=== PATIENT | male | born 1965 | race Caucasian/White ===

== ENCOUNTER 2018-04-05 19:08 | Observation (INO) | payer OTHER ==
[2018-04-05] MEDS ORDERED: ONDANSETRON 4 MG/2 ML VIAL IVP PRN (23:39)
[2018-04-05] MEDS ORDERED: NALOXONE HCL 0.4 MG/ML INJ IVP PRN (23:39)
[2018-04-05] MEDS ORDERED: ACETAMINOPHEN 325 MG TAB PO PRN (23:39)
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
[2018-04-06] MEDS: KETOROLAC 15 MG/1 ML SDV IVP SCH ×3 (00:57→12:11)
[2018-04-06] MEDS: BACITRACIN ZINC 14.2 GM OINTTUBE TP SCH ×3 (00:58→12:14)
[2018-04-06 07:28] VITALS: BP 125/76
[2018-04-06] MEDS ORDERED: oxyCODONE IR 5 MG TAB PO PRN (10:12)
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
== END 2018-04-06 12:39 | disposition home or self-care (01) ==
LOC: F3N 21:54
PROVIDERS: ADMIT Surgery; ATTEND Surgery
DX: S42.022A Displaced fracture of shaft of left clavicle, initial encounter for closed fracture (principal); S22.42XA Multiple fractures of ribs, left side, initial encounter for closed fracture; S27.0XXA Traumatic pneumothorax, initial encounter; V11.2XXA Unspecified pedal cyclist injured in collision with other pedal cycle in nontraffic accident, initial encounter; Y93.55 Activity, bike riding
CPT/HCPCS: 71045; 97161; 97165; G0378; J1885

== ENCOUNTER 2018-04-11 07:29 | Day surgery (SDC) | payer OTHER ==
[2018-04-11] MEDS ORDERED: ceFAZolin 2 GM/SWFI 2 GM/20 ML SYR IVP ONE (07:32)
[2018-04-11] MEDS ORDERED: LR 1,000 ML IV ONE (07:33)
[2018-04-11] MEDS ORDERED: BUPIVACAINE/EPI 0.5% 30 ML SDV ONE (07:50)
[2018-04-11] MEDS ORDERED: ceFAZolin 2 GM/DEXTROSE 100 ML IV ONE (08:00)
--- NOTE | 2018-04-11 08:27 | PDHPUP ---
History & Physical Update H&P update statement: This history and physical update is based on an assessment of the patient which was completed after admission or registration (within 24 hours), but prior to the surgery/procedure. H&P update: H&P reviewed & patient examined, no change in patient's condition since H&P completed
--- NOTE | 2018-04-11 08:39 | PDANEPAE ---
ANE Past Medical History - Cardiovascular History Hx Hypertension: No Hx Arrhythmias: No Hx Chest Pain: No Hx Coronary Artery / Peripheral Vascular Disease: No Hx CHF / Valvular Disease: No Hx Palpitations: No - Pulmonary History Hx COPD: No Hx Asthma/Reactive Airway Disease: No Hx Recent Upper Respiratory Infection: No Hx Oxygen in Use at Home: No Hx Sleep Apnea: No Sleep Apnea Screening Result - Last Documented: Positive Pulmonary History Comment: LT RIB FRACTURES 3-7. SMALL LEFT APICAL PNEUMOTHORAX - Neurologic History Hx Cerebrovascular Accident: No Hx Seizures: No Hx Dementia: No - Endocrine History Hx Diabetes: No - Renal History Hx Renal Disorders: No - Liver History Hx Hepatic Disorders: No - Neurological & Psychiatric Hx Hx Neurological and Psychiatric Disorders: No - Cancer History Hx Cancer: No - Congenital Disorder History Hx Congenital Disorders: No - GI History Hx Gastrointestinal Disorders: No - Other Health History Other Health History: LT CLAVICULAR FX - Chronic Pain History Chronic Pain: No - Surgical History Prior Surgeries: RT SHLDR SCOPE 06/2013. RT WRIST ORIF ANE Review of Systems Review of Systems: - Exercise capacity METS (RN): 5 METS ANE Patient History - Allergies Allergies/Adverse Reactions: No Known Allergies Allergy (Unverified 04/05/18 23:39) - Home Medications Home Medications: Cetirizine [ZyrTEC 10 mg (*)] 10 mg PO DAILY PRN 04/05/18 [Last Taken 04/11/18] Herbals/Supplements -Info Only 1 ea PO DAILY 04/05/18 [Last Taken Unknown] - NPO status NPO Since - Liquids (Date): 04/11/18 NPO Since - Liquids (Time): 02:00 NPO Since - Solids (Date): 04/10/18 NPO Since - Solids (Time): 23:00 - Smoking Hx Smoking Status: Never smoked ANE Labs/Vital Signs - Vital Signs Blood Pressure: 128/76 Heart Rate: 61 Respiratory Rate: 16 O2 Sat (%): 96 Height: 177.8 cm Weight: 77.111 kg ANE Physical Exam - Airway Neck exam: FROM Mallampati Score: Class 1 Mouth exam: normal dental/mouth exam - Pulmonary Pulmonary: no respiratory distress - Cardiovascular Cardiovascular: regular rate and rhythym - ASA Status ASA Status: II ANE Anesthesia Plan Anesthesia Plan: general endotracheal anesthesia
[2018-04-11] MEDS ORDERED: fentaNYL 250 MCG/5 ML INJ ONE (08:45)
[2018-04-11] MEDS ORDERED: PROPOFOL 200 MG/20 ML VIAL ONE ×2 (08:47→09:39)
[2018-04-11] MEDS ORDERED: epHEDrine SULFATE 10 MG/ML SYR ONE (09:38)
[2018-04-11] MEDS ORDERED: ROCURONIUM 50 MG/5 ML VIAL ONE (09:39)
[2018-04-11] MEDS ORDERED: ONDANSETRON 4 MG/2 ML VIAL ONE (09:39)
[2018-04-11] MEDS ORDERED: KETOROLAC 30 MG/1 ML SDV ONE (09:39)
[2018-04-11] MEDS ORDERED: LIDOCAINE 2% 5 ML SDV ONE (09:39)
[2018-04-11] MEDS ORDERED: DEXAMETHASONE 4 MG/ML VIAL ONE (09:39)
[2018-04-11] MEDS ORDERED: GLYCOPYRROLATE 0.2 MG/1 ML VIAL ONE (09:48)
[2018-04-11] MEDS ORDERED: NALOXONE HCL 0.4 MG/ML INJ IVP PRN (12:07)
[2018-04-11] MEDS ORDERED: PROMETHAZINE HCL 25 MG/ML INJ IVP PRN (12:07)
[2018-04-11] MEDS ORDERED: HYDROCODONE/APAP 5/325 TAB PO PRN (12:07)
[2018-04-11] MEDS ORDERED: LR 500 ML IV PRN (12:07)
--- NOTE | 2018-04-11 12:08 | POSTANESTH ---
Post Anesthetic Evaluation Cardiovascular Status: Normal, Stable Respiratory Status: Normal, Stable Level of Consciousness/Mental Status: Mildly Sleepy, Arousable Pain Control: Adequate, Prn Tx Ordered Nausea/Vomiting Control: Adequate, Prn Tx Ordered Complications Possibly Related to Anesthesia: None Noted
[2018-04-11] MEDS ORDERED: fentaNYL 100 MCG/2 ML INJ ONE (12:21)
[2018-04-11] MEDS: fentaNYL 100 MCG/2 ML INJ IVP PRN ×3 (12:24→12:38)
[2018-04-11] MEDS ORDERED: HYDROCODONE/APAP 5/325 TAB ONE (13:04)
[2018-04-11 15:52] VITALS: BP 138/74
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
== END 2018-04-11 15:15 | disposition home or self-care (01) ==
LOC: FSGY 07:29
PROVIDERS: ATTEND Orthopaedic Surgery Hand Surgery
PROC: 0PSB04Z Reposition Left Clavicle with Internal Fixation Device, Open Approach (ICD-10-PCS; principal; 2018-04-11 08:30)
PROC: BP15ZZZ Fluoroscopy of Left Clavicle (ICD-10-PCS; principal; 2018-04-11 08:30)
DX: S42.022A Displaced fracture of shaft of left clavicle, initial encounter for closed fracture (principal); S22.42XA Multiple fractures of ribs, left side, initial encounter for closed fracture; S27.0XXA Traumatic pneumothorax, initial encounter; Y93.55 Activity, bike riding; V19.9XXA Pedal cyclist (driver) (passenger) injured in unspecified traffic accident, initial encounter; Y92.410 Unspecified street and highway as the place of occurrence of the external cause
CPT/HCPCS: 23515; 71045; 76001; C1769; C1713; J0690; J1100; J1885; J2270; J2405; J2704; J3010

== ENCOUNTER → 2018-04-21 | Outpatient (CLI) | payer OTHER | LOC: BMCIMAGING 10:04 | PROVIDERS: ATTEND Orthopaedic Surgery Hand Surgery | DX: S42.022D Displaced fracture of shaft of left clavicle, subsequent encounter for fracture with routine healing (principal) ==

== ENCOUNTER → 2018-05-05 | Outpatient (CLI) | payer OTHER | LOC: BMCIMAGING 09:14 | PROVIDERS: ATTEND Orthopaedic Surgery Hand Surgery | DX: S42.022D Displaced fracture of shaft of left clavicle, subsequent encounter for fracture with routine healing (principal) ==

== ENCOUNTER → 2018-05-19 | Outpatient (CLI) | payer OTHER | LOC: BMCIMAGING 13:37 | PROVIDERS: ATTEND Orthopaedic Surgery Hand Surgery | DX: S42.022D Displaced fracture of shaft of left clavicle, subsequent encounter for fracture with routine healing (principal) ==